=== PATIENT | female | born 1955 | race Two or more races ===

== ENCOUNTER → 2020-12-03 | Outpatient (CLI) | payer BC ==
--- NOTE | 2020-12-03 14:16 | KCIC ---
EXAM: Lumbar spine, 3 views; right shoulder, 4 views. HISTORY: Pain. COMPARISON: None. FINDINGS: Lumbar spine: 3 views of the lumbar spine are obtained. There are 6 nonrib-bearing lumbar segments, a normal variant. There is dextroscoliosis centered at L3-L4. There is grade 1 anterolisthesis of L5 o n L6, measuring 5 mm. There is multilevel endplate remodeling. There is a rudimentary disc with assoc iated disc space narrowing at L6-S1. There is severe left greater than right facet arthropathy at L5 to L6. Right shoulder: 4 views of the right shoulder obtained. There is no acute fracture. There is mild gle nohumeral and acromial clavicular joint spurring. There is decreased subacromial space which is proje ctional or due to chronic rotator cuff pathology. IMPRESSION: 1. Severe facet arthropathy at the lower lumbar levels and mild multilevel endplate remodeling involv ing the lumbar spine. 2. Mild lumbar scoliosis. 3. 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 Electronically signed by: Susanne Londono MD (12/03/2020 2:14 PM) [id number]
== END ==
LOC: KCIC 13:04
PROVIDERS: ATTEND Family Medicine
DX: M19.011 Primary osteoarthritis, right shoulder (principal); M48.8X6 Other specified spondylopathies, lumbar region; M41.86 Other forms of scoliosis, lumbar region
CPT/HCPCS: 72100; 73030